=== PATIENT | female | born 1975 | race Caucasian/White ===

== ENCOUNTER 2020-07-25 18:30 | Inpatient (IN) | payer OTHER ==
[~2020-07-25] VITALS: Ht 157.5 cm; Wt 74.4 kg
--- NOTE | 2020-07-25 18:49 | NUR ---
SE RECIBE PACIENTE FEMINA DE 44 ANOS DE EDAD QUE LLEGA A VALENTÍN DE EMERGENCIAS POR CELULITIS EN DEDO DEL PIE DERECHO DESDE HACE 4 KELLER. PACIENTE REFIERE QUE TIENE DOLOR Y QUE HERNANDEZ MEDICO LA ENVIO A VALENTÍN DE EMERGENCIAS. SE UBICA A PACIENTE DENTRO DE VALENTÍN EN ESPERA DE EVALUACION MEDICA. \
--- NOTE | 2020-07-25 19:50 | NUR ---
PTE FEMENINA ALERTA Y ORIENTADA EN LAS [place] ESFERAS ES EVALUADA POR . SE ORIENTA SOBRE ORDENES DE [place] REFIERE COMPRENDER. SE EXTRAEN MUESTRAS DE LABORATORIO Y SE CANALIZA VENA, BAJO MEDIDAS ASEPTICAS. SE ADMINISTRAN MEDICAMENTOS, BAJO MEDIDAS ASEPTICAS. SE NOTIFICA A RADIOLOGIA PARA XRAY.
--- NOTE | 2020-07-26 | NUR ---
SE RECIBE PACIENTE EN PRANEETH CON MEDIDAS DE SEGURIDAD. LUCE ALERTA CONSCIENTE Y ORIENTADA X3 PRESENTANDO BUEN PATRON RESPIRATORIO. MAHENDRA DE DOLOR AL MOMENTO. IV. PATENTE AREA MAHENDRA DE EDEMA Y ENROJECIMIENTO. PTE EN ESPERA DE SER VISTA EN CONSULTA POR DR. JOSE ARIZMENDI Y DR. Micheal MULLEN
--- NOTE | 2020-07-26 07:24 | NUR ---
SE RECIBE PTE FEMENINA DE 44 ANOS DE EDAD.PTE ALERTA,ESTABLE Y ORIENTADA.SE EDUCA SOBRE EL TRATIENTO QUE SE LE REALIZARA EN EL [facility]IT[facility] Y ESTA REFIERE ENTENDER.
[2020-07-28] MEDS ORDERED: AMLODIPINE BESY10 MG (11:09)
[2020-07-28] MEDS ORDERED: CINACALCET HCL30 MG (11:09)
[2020-07-28] MEDS ORDERED: ATORVASTATIN CA20 MG (11:09)
[2020-07-28] MEDS ORDERED: GABAPENTIN100 M2 (11:10)
[2020-07-28] MEDS ORDERED: HYDRALAZINE HCL50 MG (11:10)
[2020-07-28] MEDS ORDERED: FUROSEMIDE40 MG (11:10)
[2020-07-28] MEDS ORDERED: FAMOTIDINE20 MG (11:10)
[2020-07-28] MEDS ORDERED: LANTHANUM CAR1000 MG (11:10)
[2020-07-28] MEDS ORDERED: CYCLOBENZAPRINE10 MG (11:10)
[2020-07-28] MEDS ORDERED: CLOPIDOGREL BIS75 MG (11:10)
== END 2020-08-07 15:43 | disposition designated cancer center or children's hospital (05) | DRG 299 ==
LOC: ER 18:30 → MEDI 07-26 09:39
PROVIDERS: ADMIT Internal Medicine; ATTEND Internal Medicine
PROC: B44HZZZ Ultrasonography of Bilateral Lower Extremity Arteries (ICD-10-PCS; 2020-07-28)
PROC: 02HV33Z Insertion of Infusion Device into Superior Vena Cava, Percutaneous Approach (ICD-10-PCS; principal; 2020-07-30)
DX: E11.52 Type 2 diabetes mellitus with diabetic peripheral angiopathy with gangrene (principal); N18.6 End stage renal disease; I70.263 Atherosclerosis of native arteries of extremities with gangrene, bilateral legs; L03.115 Cellulitis of right lower limb; I12.0 Hypertensive chronic kidney disease with stage 5 chronic kidney disease or end stage renal disease; E11.22 Type 2 diabetes mellitus with diabetic chronic kidney disease; E11.628 Type 2 diabetes mellitus with other skin complications; L03.031 Cellulitis of right toe; B96.5 Pseudomonas (aeruginosa) (mallei) (pseudomallei) as the cause of diseases classified elsewhere; Z99.2 Dependence on renal dialysis; Z79.84 Long term (current) use of oral hypoglycemic drugs